=== PATIENT | female | born 2005 | race Caucasian/White ===

== ENCOUNTER 2025-01-15 09:17 | Outpatient (AMB) | payer BC, SELFPAY ==
--- NOTE | 2025-01-15 09:43 | MHC.PC.OV ---
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 Allergies No Known Allergies Allergy (Verified 01/15/25 09:45) Tobacco use date assessed: 01/15/25 Dental Screening Dental Screen Date: 01/15/25 Did you have a dental visit in the last 12 months?: Yes Did you have a dental problem in the last 6 months where you did not have access to dental care?: No Was dental information given to patient?: Patient has dentist HPI HPI Comments History of Present Illness Details 19-year-old female with a past medical history of central cord syndrome and factor 5 Leiden mutation presents to establish care. She is transferring from Pediatrics. 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 Chronic pain and paresthesias in upper extremities and neck. Followed by pain management and takes gabapentin and duloxetine for paresthesias. She goes to OT at [facility] rehab for hand strengthening every couple of months. Facvot V Leiden-patient was diagnosed when she was younger after her mother developed blood clots. Patient does not have a history of blood clots. Acne-prescribed Doxycycline by dermatology. She has a social group worker, and she will call to schedule an appointment. She has a murmur on exam. Patient did not recall being told this in the past, but she does remember needing to get an EKG when she was younger. Denies chest pain, shortness of breath, leg swelling or syncope. No family history of cardiovascular disease per patient. EKG is normal today. She will have an echocardiogram done. Due for Tdap. Administered today. ROS: Constitutional: No unexplained weight loss, fever, chills, fatigue or night sweats. Eyes: No vision changes, blurry vision, double vision, eye pain, eye redness, eye discharge. ENT: No hearing loss, sneezing, congestion, runny nose or sore throat. Respiratory: No shortness of breath, cough or sputum production. Cardiovascular: No chest pain, chest pressure or chest discomfort. No palpitations or pedal edema. Gastrointestinal: No anorexia, nausea, vomiting or diarrhea. No abdominal pain or blood in stool. Genitourinary: No dysuria, hematuria, urinary frequency. Neurologic: see HPI Musculoskeletal: see HPI Hematologic/Lymphatics: No bleeding or bruising. No painful lymph nodes. Skin: No rash Endocrine: No cold or heat intolerance. No polyuria or polydipsia. Psychiatric: No SI/HI. Physical exam: Constitutional: Alert, in no distress. Head: Normocephalic. Eyes: Pupils are equal, round and reactive to light. Extraocular muscles intact. Ear, Nose and Throat: Canals clear. TMs normal. Normal nasal mucosa. No nasal discharge. No oral lesions. Neck: Supple, Full range of motion. No lymphadenopathy. No palpable thyroid masses. Respiratory: Clear to auscultation. Cardiovascular: S1 S2 regular. Mild diastolic click. Gastrointestinal: Abdomen soft, non-tender, non-distended. Normal bowel sounds. No palpable masses. Genitourinary: No costovertebral angle tenderness. Neurologic: No focal neurological deficits. Symmetric patellar reflexes. Moves all extremities spontaneously. Sensation intact bilaterally. Skin: No rashes or lesions. Musculoskeletal: No gross deformities. Normal range of motion. Extremities: Warm and well perfused. No clubbing, cyanosis or edema. 3+ peripheral pulses bilaterally. Psychiatric: Normal mood and affect [facility] Medical History (Updated 01/15/25 @ 17:48 by ASH Mazariegos) Factor V Leiden Acne Central cord syndrome Heart murmur Screening for cardiovascular condition Routine physical examination Family History (Updated 01/15/25 @ 09:52 by Sofie Gamble MA) Brother Asthma Paternal Grandfather Diabetes Maternal Grandmother Diabetes Father Type I diabetes mellitus Mother Clotting disorder Factor 5 Leiden mutation, heterozygous Maternal Grandfather Skin cancer Social History Housing: House Housing Other:: with parents Patient Tobacco Use Status: Never used Tobacco e-Cigarette/Vaping Use: Currently Using Second Hand Smoke Exposure: No service: No Current occupational status: employed Current occupation: [employer] Current occupational exposures/hazards: No Cognitive needs: No Hearing needs: No Vision needs: No Questionnaire PHQ-9 Over the last 2 weeks, how often have you been bothered by any of the following problems? 1. Little interest or pleasure in doing things: not at all 2. Feeling down, depressed, or hopeless: several days 3. Trouble falling or staying asleep, or sleeping too much: nearly every day 4. Feeling tired or having little energy: several days 5. Poor appetite or overeating: not at all 6. Feeling bad about yourself - or that you are a failure or have let yourself or your family down: several days 7. Trouble concentrating on things, such as reading the newspaper or watching television: not at all 8. Moving or speaking so slowly that other people could have noticed. Or the opposite - being so fidgety or restless that you have been moving around a lot more than usual: not at all 9. Thoughts that you would be better off or of hurting yourself in some way: not at all Total score: 6 Depression Screening Interpretation: Positive (History of PTSD per records.) Depression Screening Follow-up: Other Depression Screening Done: Yes 30534 - PHQ-9 Billing: Patient declined-do not bill Source: Developed by Drs. Rich Gray, Marisela Hernandez, Baudilio Rocha and colleagues, with an educational hernan from [employer]. Thrive Questionnaire Date Thrive assessed: 01/15/25 I am a: Patient What is your living situation today?: I have a steady place to live Within the past 12 months, did the food you bought not last and you didn't have the money to get more?: Never true Within the past 12 months, did you worry whether your food would run out before you got money to buy more?: Never true Do you have trouble paying for medicines?: No Do you have trouble getting transportation to medical appointments?: No Do you have trouble paying your heating and electricity bill?: No Do you have trouble taking care of your child, family member or friend?: No Do you have trouble with day-to-day activities such as bathing, preparing meals, shopping, managing finances, etc.?: No Are you currently unemployed and looking for a job?: No Are you interested in more education?: No Please select the resources that you would like help with: None Currently or been in a relationship where the following occur: No concerns reported THRIVE Score: 0 AUDIT C Alcohol Use Questionnaire (AUDIT-C) 1. How often do you have a drink containing alcohol?: Monthly or less 2. How many drinks containing alcohol do you have on a typical day when you are drinking?: 1 or 2 3. How often do you have six or more drinks on one occasion?: Less than monthly Total Score: 2 Score Reviewed/Action Taken: No JASMIN-7 AMB Questionnaire JASMIN-7 Feeling nervous, anxious, or on edge: 1 = Several days Not being able to stop or control worryin = Several days Worrying too much about different things: 0 = Not at all Trouble relaxin = Several days Being so restless that it is hard to sit still: 0 = Not at all Becoming easily annoyed or irritable: 0 = Not at all Feeling afraid as if something awful might happen: 0 = Not at all Total JASMIN-7 score (0-4 normal; 5-9 mild; 10-14 moderate; 15-21 severe): 3 Source: Developed by Drs. Rich Gray, Marisela Hernandez, Baudilio Rocha and colleagues, with an educational hernan from [employer]. JASMIN-7 Assessment Billing JASMIN-7 Assessment Tool: JASMIN-7 Assessment 20094 Physical exam (Primary Care) Vital Signs: Last Vital Signs Temp 98.6 F 01/15/25 09:53 Pulse 80 01/15/25 09:53 BP 102/72 01/15/25 09:53 Pulse Ox 99 01/15/25 09:53 Oxygen Delivery Method Room Air 01/15/25 09:53 Oxygen Flow Rate 98.6 01/15/25 09:53 BMI result Body Mass Index 30.3 Tobacco/Smoking Status: Tobacco use Status Tobacco use date assessed 01/15/25 01/15/25 09:55 Patient Tobacco Use Status Never used Tobacco 01/15/25 09:55 e-Cigarette/Vaping Use Currently Using 01/15/25 09:55 PHQ-9: PHQ-9 Score PHQ-9: Total score 6 01/15/25 10:06 Depression Screening Interpretation: Positive (History of PTSD per records.) Depression Screening Follow-up: Other Thrive Assessment: Date of Thrive Assessment Date Thrive assessed 01/15/25 01/15/25 09:55 Currently or been in a relationship where the following occur: No concerns reported Office Procedures EKG Details: EKG shows normal sinus rhythm and ventricular rate of 70 beats per minute [id number], Complete Immunizations Boostrix Tdap 2.5 Lf unit-8 mcg-5 Lf/0.5 mL intramuscular syringe Performing Provider: ASH Mazariegos Performing Location: [facility] Administered by: Sofie Gamble MA on 01/15/25 11:28 Dose Route Admin Location Dispensed Lot Number Expiration Date NDC Exercise Planner 0.5 mL IM Left Deltoid 0.5 mL [id number] 02/21/27 02828-402-53 [employer] VIS Given Date VIS Provided VIS Publication Date 01/15/25 Single Vaccine 21 Eligibility Eligibility Date Funding Source Not [facility] Eligible 01/15/25 Private Coding Level of Care Code New Pt Prev Care 18-39yr(29389 Diagnoses Routine physical examination Z00.00 Heart murmur R01.1 Screening for cardiovascular condition Z13.6 CPT Codes EKG - CPT: 25082-Hmquxzahncwtfkjnf, Complete ([id number]) Additional Codes JASMIN-7 Assessment Billing - JASMIN-7 Assessment Tool: JASMIN-7 Assessment 37964 ([id number]) Assessment & Plan Assessment & Plan (1) Routine physical examination: Code(s): Z00.00 - Encounter for general adult medical examination without abnormal findings Category: Medical Plan: Patient is seen today for a routine physical. 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 - Blood pressure screening - Cholesterol screening - Osteoporosis prevention including calcium/vitamin D intake, weight bearing exercise & smoking cessation - Nutritional and exercise counseling - Counseling of injury prevention including fire prevention, smoke alarms and seat belt usage - Screening for depression - Prevention of and/or testing for infectious diseases - Education about skin cancer - Recommendations about immunizations - Recommendation of an eye exam - Screening for substance abuse (2) Heart murmur: Code(s): R01.1 - Cardiac murmur, unspecified Category: Medical Plan: Echo ordered. (3) Screening for cardiovascular condition: Code(s): Z13.6 - Encounter for screening for cardiovascular disorders Category: Medical Plan Physical exam in 1 year. Orders: Orders Comprehensive Met. Panel Today Z00.00 - Encounter for general adult medical examination without abnormal findings, Z13.6 - Encounter for screening for cardiovascular disorders TDaP Immunization Today Z23 - Encounter for immunization AMB EKG-In Office Today R01.1 - Cardiac murmur, unspecified Lipid Panel Today E78.5 - Hyperlipidemia, unspecified, Z00.00 - Encounter for general adult medical examination without abnormal findings, Z13.6 - Encounter for screening for cardiovascular disorders Complete Blood Count no Diff Today Z00.00 - Encounter for general adult medical examination without abnormal findings, Z13.6 - Encounter for screening for cardiovascular disorders CA echo transthoracic complete Today R01.1 - Cardiac murmur, unspecified
[2025-01-15 09:53] VITALS: BP 102/72; PULSE 80; TEMP 37; O2SAT 99; BMI 30.3
== END 2025-01-15 10:32 | disposition home or self-care (01) ==
LOC: HO.HMCFM 09:18
PROVIDERS: PCP Physician Assistant Medical; Visit Provider Physician Assistant Medical
DX: Z00.00 Encounter for general adult medical examination without abnormal findings (principal); R01.1 Cardiac murmur, unspecified; Z13.6 Encounter for screening for cardiovascular disorders; Z23 Encounter for immunization

== ENCOUNTER → 2025-01-15 09:17 | Outpatient (BNVA) | payer BC, SELFPAY | PROVIDERS: PCP Physician Assistant Medical; Visit Provider Physician Assistant Medical | DX: Z00.00 Encounter for general adult medical examination without abnormal findings (principal); Z23 Encounter for immunization; R01.1 Cardiac murmur, unspecified; S14.125D Central cord syndrome at C5 level of cervical spinal cord, subsequent encounter; X58.XXXD Exposure to other specified factors, subsequent encounter; D68.51 Activated protein C resistance | CPT/HCPCS: 90471; 90715; 93005; 96127 ==

== ENCOUNTER → 2025-03-02 07:55 | Outpatient (REF) | payer BC, SELFPAY ==
--- NOTE | 2025-03-02 08:03 | CA_ITS ---
Transthoracic Echocardiogram Patient (Last, First, Middle): Mia Pope, Gender: Female Date of : 2005 Age: 19 Procedure Date: 03/02/2025 Procedure Type: Transthoracic Echocardiogram Location: OP Height: 160.02 cm Weight: 78.93 kg BSA: 1.82 m2 Heart Rate: bpm BP: 120 / 70 mmHg Waste Machine Offbearer: Referring MD: Bernice ALEMAN Symptoms: R01.1 - Cardiac murmur, unspecified Study Quality: Good ECG Rhythm: Sinus Conclusions: - The left ventricular systolic function is normal. The calculated ejection fraction is 59% by biplane method. - No obvious valvular pathology seen on this study. Findings Left Ventricle Normal left ventricular cavity size. There is normal left ventricular wall thickness. The left ventricular systolic function is normal. The calculated ejection fraction is 59% by biplane method. There is no evidence of regional wall motion abnormalities. Diastolic function is normal for age. Right Ventricle Normal right ventricular cavity size and systolic function. Atria Both atria are normal in size. Aortic Valve There is a normal trileaflet aortic valve. There is no aortic valve stenosis. There is no aortic valve regurgitation. Mitral Valve The mitral valve appears normal. There is trace mitral valve regurgitation. There is no mitral valve stenosis. Pulmonic Valve The pulmonic valve is likely normal. Tricuspid Valve There is trace tricuspid valve regurgitation. There is no evidence of pulmonary hypertension. Great Vessels The asc aorta is normal in size. Venous The inferior vena cava is normal in size and collapses greater than 50% with inspiration. Pericardium/Pleural There is no evidence of pericardial effusion. Prior Study Comparison No prior study available for comparison. Recommendations, Care & Conclusions No obvious valvular pathology seen on this study. Measurements 2D Linear Measurements IVSd: 0.91 0.6-0.9/0.6-1.0 cm LVIDd: 4.42 3.9-5.3/4.2-5.9 cm LVIDd Index: 2.43 2.4-3.2/2.2-3.1 cm/m2 LVIDs: 2.92 2.0-3.6 cm LVPWd: 0.84 0.7-1.1 cm Ao Root: 2.20 2.1-3.5 cm LA Diam: 3.30 2.7-3.8/3.0-4.0 cm LAIDs Index: 1.81 1.5-2.3 cm/m2 LV Mass: 154.71 67-162/88-224 g LV Mass Index: 85.01 43-95/49-115 g/m2 LVOT Diam: 1.90 3.0+(-)1.3 cm 2D Systolic Function EF 4C: 55.10 >55% EF 2C: 62.10 >55% EF BiP: 58.90 >55% Mitral Valve MV Pk E: 0.99 MV PK A: 0.67 MV Decel Time: 150.00 E/A: 1.50 E'Lateral: 21.50 E/E' Lat: 4.60 PHT: 44.00 MVA PHT: 5.00 Decel Pacific: 6.63 Aortic Valve AoV Pk Paddy: 1.42 AoV Mn Paddy: 0.94 AoV VTI: 0.34 AoV Pk Grad: 8.00 Aov Mn Grad: 4.00 VERONICA Cont.VTI: 1.65 LVOT LVOT Pk Paddy: 0.88 LVOT Mn Paddy: 0.55 LVOT VTI: 0.20 LVOT Pk Grad: 3.00 LVOT Mn Grad: 1.00 LVOT Diam: 1.90 LVOT Area: 2.84 Diastolic Function MV Pk E: 0.99 MV Pk A: 0.67 E/A: 1.50 E' Laterial: 21.50 E/E' Lat: 4.60 Right Ventricle TAPSE (mm): 25.00 TVS' Paddy: 12.00 Tricuspid Valve TR Pk Paddy: 1.96 TR Pk Grad: 15.00 RA Press: 3.00 Great Vessels Aorta Ao Root-2D: 2.20 2.0-3.7 cm Ao Asc: 2.60 2.1-3.4 cm Pulmonary Valve PV Pk Paddy: 1.05 Peak PV Grad: 4.00 Updated in Other Vendor System with Status of Final Jim Corona MD electronically signed on 03/02/2025 11:43:26 AM with status of Final
== END ==
LOC: HO.CARD 07:55
PROVIDERS: PCP Physician Assistant Medical; Visit Provider Physician Assistant Medical
DX: R01.1 Cardiac murmur, unspecified (principal)
CPT/HCPCS: 93306

== ENCOUNTER → 2025-03-02 08:03 | Outpatient (BNV) | payer BC, SELFPAY | PROVIDERS: PCP Physician Assistant Medical; Visit Provider Internal Medicine | DX: R01.1 Cardiac murmur, unspecified (principal) | CPT/HCPCS: 93306 ==

== ENCOUNTER 2025-03-16 08:17 | Outpatient (REF) | payer BC, SELFPAY ==
[2025-03-16 11:35] LABS: Hematocrit 37.7 % (37.0-47.0); Hemoglobin 12.5 g/dl (12.0-16.0); Mean Corpuscular HGB Conc 33.2 g/dl (31.0-35.0); Mean Corpuscular Hemoglobin 29.0 pg (27.0-33.0); Mean Corpuscular Volume 87.5 fL (80.0-98.0); NRBC Abs Auto 0.000 X10*3/uL (0.0-0.012); NRBC Pct Auto 0.0 /100WBC (0.0-0.2); Platelet Count 254 X10*3/uL (160-400); Red Blood Count 4.31 X10*6/uL (4.20-5.50); White Blood Count 5.2 X10*3/uL (4.8-10.8)
[2025-03-16 14:21] LABS: Alanine Aminotransferase 15 U/L (0-31); Albumin Level 4.1 g/dL (3.5-5.0); Alkaline Phosphatase 63 U/L (39-117); Anion Gap 12 (12-20); Aspartate Amino Transferase 20 U/L (5-31); Blood Urea Nitrogen 14 mg/dL (9-16); Calcium 8.9 mg/dL (8.4-10.2); Carbon Dioxide 25 mmol/L (22-29); Chloride 108 mmol/L (96-108); Cholesterol 163 mg/dL (<200); Estimated Glomerular Filt Rate > 60; HDL Cholesterol 53 mg/dL (>40); Potassium 3.8 mmol/L (3.3-5.1); Sodium 141 mmol/L (135-145); Total Protein 6.4 g/dL (6.5-8.0); Triglycerides 73 mg/dL (<150)
== END 2025-03-16 08:18 | disposition home or self-care (01) ==
LOC: HO.WFDLDS 08:17
PROVIDERS: Visit Provider Physician Assistant Medical
DX: Z00.00 Encounter for general adult medical examination without abnormal findings (principal); Z13.6 Encounter for screening for cardiovascular disorders; E78.5 Hyperlipidemia, unspecified
CPT/HCPCS: 36415; 80053; 80061; 85027

== ENCOUNTER 2025-03-19 09:59 | Outpatient (AMB) | payer BC, SELFPAY ==
--- NOTE | 2025-03-19 10:09 | A.OFFPC_ITS ---
Vital Signs 03/19/25 10:12 Height 5 ft 3 in Weight 170 lb 4 oz BMI 30.2 BP 108/62 Blood Pressure Location Lt brachial Position Sitting Pulse 79 Pulse Source Pulse Oximeter Temp 97.5 F Temp Source Temporal Artery Scan Pulse Oximetry (%) 100 Oxygen Delivery Method Room Air Intake Visit Reasons: reivew results Intake Note: Mia presents in the office today for a medication review. Allergies No Known Allergies Allergy (Verified 03/19/25 10:11) Tobacco use date assessed: 03/19/25 Dental Screening Dental Screen Date: 03/19/25 Did you have a dental visit in the last 12 months?: Yes Did you have a dental problem in the last 6 months where you did not have access to dental care?: No Was dental information given to patient?: Patient has dentist HPI HPI Comments History of Present Illness Details 20-year-old female with a past medical h istory of central cord syndrome and factor 5 Leiden mutation presents for follow up. We reviewed her recent lab results which are normal. She had an echocardiogram for evaluation of a heart murmur. She had trace mitral and tricuspid valve regurgitation. There was no significant valve pathology. She reports feeling fatigued and having some migraine headaches within the last few weeks. She had 1 ocular migraine. In the past she has had ocular migraines rarely. Headaches are associated with sensitivity to light and sound. It helps when she sleeps. She tries not to take medication [id number]. She started to drink more water. She had the ocular migraine when she was house sitting and did not sleep well that night. No fevers or chills. 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 Chronic pain and paresthesias in upper extremities and neck. Followed by pain management and takes gabapentin and duloxetine for paresthesias. She goes to OT at [facility] rehab for hand strengthening every couple of months. Factor V Leiden-patient was diagnosed when she was younger after her mother developed blood clots. Patient does not have a history of blood clots. Acne-prescribed Doxycycline by dermatology. Requests referral for Gynecology. This is placed. ROS: Constitutional: No unexplained weight loss, fever, chills or night sweats. Eyes: No vision changes, blurry vision, double vision, eye pain, eye redness, eye discharge. ENT: No hearing loss, sneezing, congestion, runny nose or sore throat. Respiratory: No shortness of breath, cough or sputum production. Cardiovascular: No chest pain, chest pressure or chest discomfort. No palpitations or pedal edema. Gastrointestinal: No anorexia, nausea, vomiting or diarrhea. No abdominal pain or blood in stool. Genitourinary: No dysuria, hematuria, urinary frequency. Neurologic: No seizures or tremors, no memory loss, no syncope or dizziness Musculoskeletal: see HPI Hematologic/Lymphatics: No bleeding or bruising. No painful lymph nodes. Skin: No rash Endocrine: No cold or heat intolerance. No polyuria or polydipsia. Psychiatric: No SI/HI. Physical exam: Constitutional: Alert, in no distress. Head: Normocephalic. Eyes: Pupils are equal, round and reactive to light. Extraocular muscles intact. Ear, Nose and Throat: Canals clear. TMs normal. Normal nasal mucosa. No nasal discharge. No oral lesions. Neck: Supple, Full range of motion. No lymphadenopathy. No palpable thyroid masses. Respiratory: Clear to auscultation. Cardiovascular: S1 S2 regular. Gastrointestinal: Abdomen soft, non-tender, non-distended. Normal bowel sounds. No palpable masses. Neurologic:?Alert and oriented x 3, no focal deficits observed, CN 2-12 intact, [id number] normal, sensation equal and symmetric, strength UE and LE 5/5 bilaterally, reflexes equal and symmetric.? Normal gait.? Patient able to heel walk, toe walk and walk heel-to-toe across the floor.? No pronator drift.? Negative Romberg. Skin: No rashes Musculoskeletal: No gross deformities. Normal range of motion. Extremities: Warm and well perfused. No clubbing, cyanosis or edema. Psychiatric: Normal mood and affect [facility] Medical History (Updated 03/19/25 @ 13:42 by ASH Mazariegos) Migraine Fatigue Factor V Leiden Acne Central cord syndrome Heart murmur Screening for cardiovascular condition Routine physical examination Family History Brother Asthma Paternal Grandfather Diabetes Maternal Grandmother Diabetes Father Type I diabetes mellitus Mother Clotting disorder Factor 5 Leiden mutation, heterozygous Maternal Grandfather Skin cancer Social History (Updated 03/19/25 @ 10:12 by Sofie Gamble MA) Housing: House Housing Other:: with parents Alcohol intake: current Patient Tobacco Use Status: Never used Tobacco e-Cigarette/Vaping Use: Currently Using Second Hand Smoke Exposure: No Substance Use Type: Marijuana service: No Current occupational status: employed Current occupation: [employer] Current occupational exposures/hazards: No Cognitive needs: No Hearing needs: No Vision needs: No Questionnaire Thrive Questionnaire Date Thrive assessed: 01/08/25 I am a: Patient What is your living situation today?: I have a steady place to live Within the past 12 months, did the food you bought not last and you didn't have the money to get more?: Never true Within the past 12 months, did you worry whether your food would run out before you got money to buy more?: Never true Do you have trouble paying for medicines?: No Do you have trouble getting transportation to medical appointments?: No Do you have trouble paying your heating and electricity bill?: No Do you have trouble taking care of your child, family member or friend?: No Do you have trouble with day-to-day activities such as bathing, preparing meals, shopping, managing finances, etc.?: No Are you currently unemployed and looking for a job?: No Are you interested in more education?: No Please select the resources that you would like help with: None Currently or been in a relationship where the following occur: No concerns reported THRIVE Score: 0 Physical exam (Primary Care) Vital Signs: Last Vital Signs Temp 97.5 F 03/19/25 10:12 Pulse 79 03/19/25 10:12 BP 108/62 03/19/25 10:12 Pulse Ox 100 03/19/25 10:12 Oxygen Delivery Method Room Air 03/19/25 10:12 BMI result Body Mass Index 30.2 Tobacco/Smoking Status: Tobacco use Status Tobacco use date assessed 03/19/25 03/19/25 10:16 Patient Tobacco Use Status Never used Tobacco 03/19/25 10:12 e-Cigarette/Vaping Use Currently Using 03/19/25 10:12 Thrive Assessment: Date of Thrive Assessment Date Thrive assessed 01/08/25 03/19/25 10:11 Currently or been in a relationship where the following occur: No concerns reported Coding Level of Care Code Est Pt Level 4 (50370) Complex EM visit Add On G2211 Diagnoses Other fatigue R53.83 Fatigue type: other Migraine G43.909 Migraine type: other Heart murmur R01.1 Assessment & Plan Assessment & Plan (1) Fatigue: Code(s): R53.83 - Other fatigue Category: Medical Qualifiers: Fatigue type: other Qualified Code(s): R53.83 - Other fatigue Plan: Check additional labs below for fatigue. Continue to hydrate but make sure to get a beverage with electrolytes like liquid IV, Pedialyte or Gatorade. (2) Migraine: Code(s): G43.909 - Migraine, unspecified, not intractable, without status migrainosus Category: Medical Qualifiers: Migraine type: other Plan: Check labs-see detailed list below Reviewed the importance of adequate nutrition, sleep, hydration. Consider trial of magnesium at night for migraine/sleep pending lab results. (3) Heart murmur: Code(s): R01.1 - Cardiac murmur, unspecified Category: Medical Plan: Benign echocardiogram Plan Follow up to be determined. Orders: Orders UA w Microscopic Today R39.9 - Unspecified symptoms and signs involving the genitourinary system, R53.83 - Other fatigue Urine Culture Today R39.9 - Unspecified symptoms and signs involving the genitourinary system, R53.83 - Other fatigue Vitamin D 25-OH (D2 and D3) Today R53.83 - Other fatigue, S14.129A - Central cord syndrome at unspecified level of cervical spinal cord, initial encounter TSH reflex Free T4 Today R53.83 - Other fatigue Magnesium Today R53.83 - Other fatigue Lyme IgG/IgM w/reflex to WB Today R53.83 - Other fatigue Sodium Today R53.83 - Other fatigue Vitamin B12 Today Z91.89 - Other specified personal risk factors, not elsewhere classified Referrals [facility] Referral Z01.419 - Encounter for gynecological examination (general) (routine) without abnormal findings
[2025-03-19 10:12] VITALS: BP 108/62; PULSE 79; TEMP 36.4; O2SAT 100; BMI 30.2
== END 2025-03-19 10:40 | disposition home or self-care (01) ==
LOC: HO.HMCFM 09:59
PROVIDERS: PCP Physician Assistant Medical; Visit Provider Physician Assistant Medical
DX: R53.83 Other fatigue (principal); G43.909 Migraine, unspecified, not intractable, without status migrainosus; R01.1 Cardiac murmur, unspecified

== ENCOUNTER 2025-03-19 10:57 | Outpatient (REF) | payer BC, SELFPAY ==
[2025-03-19 16:05] LABS: Appearance Urine Clear; Glucose Urine UA Negative (Negative); PH 6.0 (5.0-9.0); Specific Gravity - Urine >= 1.030 (1.005-1.025)
[2025-03-19 16:58] LABS: Magnesium 2.3 mg/dL (1.6-2.6); Sodium 138 mmol/L (135-145)
[2025-03-19 17:12] LABS: Vitamin B12 576 pg/mL (200-900)
[2025-03-20 11:13] LABS: Lyme Blot 0.97 index
[2025-03-23 15:32] LABS: Vitamin D 25-OH, D2 <4 ng/mL; Vitamin D 25-OH, D3 34 ng/mL; Vitamin D 25-OH, Total 34 ng/mL (30-100)
[2025-03-25 14:34] LABS: Lyme Abs Screen EQUIVOCAL
[2025-03-25 20:53] LABS: 39KD (IgG) Band NON-REACTIVE; 41KD (IgG) Band REACTIVE; Lyme IgG Blot Interp NEGATIVE (NEGATIVE); Lyme IgM Blot Interp NEGATIVE (NEGATIVE)
== END 2025-03-19 10:58 | disposition home or self-care (01) ==
LOC: HO.WFDLDS 10:57
PROVIDERS: Visit Provider Physician Assistant Medical
DX: S14.129A Central cord syndrome at unspecified level of cervical spinal cord, initial encounter (principal); R39.9 Unspecified symptoms and signs involving the genitourinary system; Z91.89 Other specified personal risk factors, not elsewhere classified; R53.83 Other fatigue; X58.XXXA Exposure to other specified factors, initial encounter; Y93.9 Activity, unspecified; Y92.9 Unspecified place or not applicable; Y99.9 Unspecified external cause status
CPT/HCPCS: 36415; 81001; 82306; 82607; 83735; 84295; 84443; 86617; 86618; 87086